=== PATIENT | male | born 1965 | race African-American/Black ===

== ENCOUNTER 2018-02-22 10:22 | Inpatient (IN) | payer MEDICAID, OTHER ==
[~2018-02-22] VITALS: Ht 167.6 cm; Wt 68.9 kg
[2018-02-22] MEDS ORDERED: SODIUM CHLORIDE 0.9% 1,000 ML IV ONE (11:44)
[2018-02-22] MEDS ORDERED: MECLIZINE 25MG TABLET PO ONE (12:00)
[2018-02-22 12:12] LABS: BASOPHILS % 0.9 % (0.0-2.0); EOSINOPHILS % 1.7 % (0.0-5.0); HEMATOCRIT. 37.6 % (42.0-52.0); HEMOGLOBIN. 13.2 g/dL (14.0-18.0); LYMPHOCYTES % 21.5 % (20.0-50.0); MEAN CORPUSCULAR HEMOGLOBIN 30.8 pg (28.0-32.0); MEAN CORPUSCULAR VOLUME 87.4 fL (80.0-94.0); MEAN PLATELET VOLUME 8.4 fl (7.4-10.4); MONOCYTES % 6.1 % (2.0-8.0); NEUTROPHILS % 69.8 % (40.0-76.0); PLATELET 199 x1000/uL (130-400); RED CELL DISTRIBUTION WIDTH 13.7 % (11.6-14.6)
[2018-02-22 12:20] LABS: CHLORIDE 100 mEq/L (98-107)
[2018-02-22 12:24] LABS: PARTIAL THROMBOPLASTIN TIME 26.6 sec (23.4-31.0); PROTHROMBIN TIME 10.3 sec (9.1-11.1)
[2018-02-22 12:28] LABS: CREATINE KINASE 37 IU/L (39-308)
[2018-02-22 12:30] LABS: CREATINE KINASE MB FRACTION < 1.0 ng/mL (0.5-3.6)
[2018-02-22] MEDS ORDERED: IPRATROPIUM/ALBUTEROL 0.5-3(2.5)MG/3ML NEB HHN PRN (15:45)
[2018-02-22] MEDS ORDERED: DEXTROSE 50% WATER 50ML SYRINGE IV PRN ×2 (15:45→16:15)
[2018-02-22 15:47] VITALS: BP 177/90
[2018-02-22] MEDS ORDERED: ACETAMINOPHEN 325MG TABLET PO PRN (16:15)
[2018-02-22] MEDS ORDERED: CLONIDINE 0.1MG TABLET PO PRN (16:15)
[2018-02-22] MEDS ORDERED: ONDANSETRON HCL 4MG/2ML INJ IV PRN (16:15)
[2018-02-22] MEDS: BLOOD SUGAR DIAGNOSTIC STRIP TEST SCH ×2 (16:20→21:13)
[2018-02-22] MEDS ORDERED: BLOOD SUGAR DIAGNOSTIC STRIP TEST SCH (16:45)
[2018-02-22 16:48] VITALS: BP_SYST 109; BP_SYST 169; BP_SYST 177; BP_DIAS 69; BP_DIAS 82; BP_DIAS 90
[2018-02-22] MEDS: INSULIN LISPRO 100 UNITS/ML SUBCUT SCH ×2 (17:31→21:14)
[2018-02-22] MEDS ORDERED: METF-815 PO (17:40)
[2018-02-22 18:33] LABS: CLARITY URINE CLEAR (CLEAR); COLOR URINE YELLOW (YELLOW); KETONES URINE TRACE (NEGATIVE); LEUKOCYTE ESTERASE URINE NEGATIVE (NEGATIVE); NITRITE URINE NEGATIVE (NEGATIVE); OCCULT BLOOD URINE NEGATIVE (NEGATIVE); PH URINE 5.5 (4.5-8.0); PROTEIN URINE 1+ (NEGATIVE); SPECIFIC GRAVITY URINE 1.019 (1.005-1.030); UROBILINOGEN URINE 0.2 E.U./dL (0.2-1.0)
[2018-02-22 19:31] LABS: *BENZODIAZEPINES SCREEN URINE NEGATIVE (NEGATIVE); *COCAINE SCREEN URINE NEGATIVE (NEGATIVE); METHADONE URINE SCREEN NEGATIVE (NEGATIVE); OPIATES URINE SCREEN NEGATIVE (NEGATIVE)
[2018-02-22 19:32] LABS: *AMPHETAMINES SCREEN URINE NEGATIVE (NEGATIVE); *BARBITURATES SCREEN URINE NEGATIVE (NEGATIVE); CANNABINOID URINE SCREEN NEGATIVE (NEGATIVE); PHENCYCLIDINE URINE SCREEN NEGATIVE (NEGATIVE)
[2018-02-22 20:00] VITALS: BP 137/67
[2018-02-22] MEDS: LISINOPRIL 5MG TABLET PO SCH (21:10)
[2018-02-22] MEDS: SODIUM CHLORIDE 0.9% INJ 3ML FLUSH IVF SCH (21:11)
[2018-02-23] VITALS: BP 99/56
[2018-02-23] MEDS: SODIUM CHLORIDE 0.9% INJ 3ML FLUSH IVF SCH ×3 (06:20→21:31)
[2018-02-23] MEDS: BLOOD SUGAR DIAGNOSTIC STRIP TEST SCH ×4 (07:08→21:00)
[2018-02-23] MEDS: INSULIN LISPRO 100 UNITS/ML SUBCUT SCH ×4 (07:13→21:30)
[2018-02-23 08:00] VITALS: BP 115/60
[2018-02-23] MEDS: LISINOPRIL 5MG TABLET PO SCH ×2 (09:18→21:26)
[2018-02-23] MEDS: LINAGLIPTIN 5MG TABLET PO SCH (10:20)
[2018-02-23] MEDS ORDERED: REGADENOSON 0.4 MG/5 ML IV ONE (11:00)
[2018-02-23 12:00] VITALS: BP_SYST 104; BP_SYST 109; BP_SYST 91; BP_DIAS 51; BP_DIAS 62; BP_DIAS 68
[2018-02-23] MEDS: SODIUM CHLORIDE 0.9% 1,000 ML IV SCH (12:34)
[2018-02-23 16:00] VITALS: BP 97/56
[2018-02-23] MEDS: METFORMIN HCL 500MG TABLET PO SCH (17:45)
[2018-02-24] MEDS: SODIUM CHLORIDE 0.9% 1,000 ML IV SCH ×2 (00:28→18:08)
[2018-02-24] MEDS: BLOOD SUGAR DIAGNOSTIC STRIP TEST SCH ×4 (06:15→21:09)
[2018-02-24] MEDS: SODIUM CHLORIDE 0.9% INJ 3ML FLUSH IVF SCH ×3 (06:17→20:52)
[2018-02-24 07:04] LABS: EOSINOPHILS % 2.3 % (0.0-5.0); HEMOGLOBIN. 12.7 g/dL (14.0-18.0); LYMPHOCYTES % 29.9 % (20.0-50.0); MEAN CORPUSCULAR HEMOGLOBIN 30.6 pg (28.0-32.0); MEAN CORPUSCULAR VOLUME 86.8 fL (80.0-94.0); MEAN PLATELET VOLUME 8.3 fl (7.4-10.4); MONOCYTES % 7.8 % (2.0-8.0); PLATELET 195 x1000/uL (130-400); RED BLOOD CELL COUNT 4.14 mill/uL (4.7-6.1)
[2018-02-24] MEDS: METFORMIN HCL 500MG TABLET PO SCH ×2 (07:38→17:47)
[2018-02-24] MEDS: INSULIN LISPRO 100 UNITS/ML SUBCUT SCH ×4 (07:40→21:05)
[2018-02-24 08:00] VITALS: BP_SYST 101; BP_SYST 119; BP_SYST 82; BP_DIAS 50; BP_DIAS 64
[2018-02-24 08:31] LABS: CHLORIDE 105 mEq/L (98-107)
[2018-02-24] MEDS: LISINOPRIL 5MG TABLET PO SCH ×2 (09:00→20:52)
[2018-02-24] MEDS ORDERED: REGADENOSON 0.4 MG/5 ML IV ONE (09:43)
[2018-02-24] MEDS ORDERED: FLUDROCORTISONE ACETATE 0.1MG TABLET PO SCH (10:30)
[2018-02-24 12:00] VITALS: BP 109/57
[2018-02-24] MEDS: LINAGLIPTIN 5MG TABLET PO SCH (12:12)
[2018-02-24 16:34] VITALS: BP_SYST 124; BP_SYST 78; BP_SYST 99; BP_DIAS 55; BP_DIAS 66; BP_DIAS 72
[2018-02-24 20:00] VITALS: BP_SYST 109; BP_SYST 113; BP_SYST 133; BP_DIAS 65; BP_DIAS 70; BP_DIAS 74
[2018-02-25] VITALS: BP_SYST 103; BP_SYST 108; BP_SYST 92; BP_DIAS 57; BP_DIAS 61; BP_DIAS 62
[2018-02-25 04:00] VITALS: BP_SYST 110; BP_SYST 116; BP_SYST 79; BP_DIAS 47; BP_DIAS 67; BP_DIAS 68
[2018-02-25] MEDS: SODIUM CHLORIDE 0.9% 1,000 ML IV SCH (05:58)
[2018-02-25] MEDS: SODIUM CHLORIDE 0.9% INJ 3ML FLUSH IVF SCH ×2 (05:59→12:46)
[2018-02-25] MEDS: BLOOD SUGAR DIAGNOSTIC STRIP TEST SCH ×2 (06:47→12:25)
[2018-02-25] MEDS: INSULIN LISPRO 100 UNITS/ML SUBCUT SCH ×2 (06:48→12:46)
[2018-02-25] MEDS: METFORMIN HCL 500MG TABLET PO SCH (07:18)
[2018-02-25 08:00] VITALS: BP_SYST 114; BP_SYST 140; BP_SYST 151; BP_DIAS 71; BP_DIAS 76; BP_DIAS 84
[2018-02-25] MEDS ORDERED: LINA5TAB PO (08:05)
[2018-02-25] MEDS: LINAGLIPTIN 5MG TABLET PO SCH (09:02)
[2018-02-25] MEDS: LISINOPRIL 5MG TABLET PO SCH (09:02)
[2018-02-25 11:01] VITALS: BP 140/72
[2018-02-25 12:00] VITALS: BP 140/72
== END 2018-02-25 13:02 | disposition home or self-care (01) | DRG 204 ==
LOC: ER 12:55 → 5WST 12:59 → EDBEDREQ 13:06 → EDBEDREQTM 13:06 → ENRESERV 13:57
PROVIDERS: ADMIT Family Medicine Adult Medicine; ATTEND Family Medicine Adult Medicine
DX: I95.1 Orthostatic hypotension (principal); E11.65 Type 2 diabetes mellitus with hyperglycemia; R07.9 Chest pain, unspecified; D64.9 Anemia, unspecified; I10 Essential (primary) hypertension; R06.00 Dyspnea, unspecified; G90.8 Other disorders of autonomic nervous system; Z79.84 Long term (current) use of oral hypoglycemic drugs; Z82.49 Family history of ischemic heart disease and other diseases of the circulatory system; Z83.3 Family history of diabetes mellitus; Z91.14 Patient's other noncompliance with medication regimen
CPT/HCPCS: 36415; 71045; 78452; 80048; 80061; 80305; 82533; 82550; 82553; 82962; 83036; 83735; 83880; 84484; 93005; 93017; 93306; 93880; 96360; 99285; A9500; J1815; J2785; J7030; J8597

== ENCOUNTER 2018-03-30 11:55 | Emergency (ER) | payer MEDICAID ==
[~2018-03-30] VITALS: Ht 167.6 cm; Wt 65.0 kg
[~2018-03-30 11:55] MED LIST: LINA5TAB PO; METF-815 PO
[2018-03-30] MEDS ORDERED: SODIUM CHLORIDE 0.9% 1,000 ML IV ONE (15:48)
[2018-03-30 17:20] LABS: BASOPHILS % 0.8 % (0.0-2.0); EOSINOPHILS % 2.2 % (0.0-5.0); HEMATOCRIT. 35.8 % (42.0-52.0); HEMOGLOBIN. 12.6 g/dL (14.0-18.0); LYMPHOCYTES % 22.3 % (20.0-50.0); MEAN CORPUSCULAR HEMOGLOBIN 30.2 pg (28.0-32.0); MEAN CORPUSCULAR VOLUME 86.2 fL (80.0-94.0); MEAN PLATELET VOLUME 8.3 fl (7.4-10.4); MONOCYTES % 6.4 % (2.0-8.0); NEUTROPHILS % 68.3 % (40.0-76.0); PLATELET 216 x1000/uL (130-400); RED BLOOD CELL COUNT 4.16 mill/uL (4.7-6.1); RED CELL DISTRIBUTION WIDTH 14.3 % (11.6-14.6)
[2018-03-30 17:24] LABS: CHLORIDE 104 mEq/L (98-107)
[2018-03-30 17:26] LABS: INR 1.1; PROTHROMBIN TIME 10.6 sec (9.1-11.1)
[2018-03-30 17:34] LABS: ETHANOL BLOOD < 10 mg/dL
[2018-03-30 18:03] LABS: CLARITY URINE CLEAR (CLEAR); COLOR URINE YELLOW (YELLOW); KETONES URINE NEGATIVE (NEGATIVE); LEUKOCYTE ESTERASE URINE NEGATIVE (NEGATIVE); NITRITE URINE NEGATIVE (NEGATIVE); OCCULT BLOOD URINE NEGATIVE (NEGATIVE); PROTEIN URINE 1+ (NEGATIVE); SPECIFIC GRAVITY URINE 1.014 (1.005-1.030); UROBILINOGEN URINE 0.2 E.U./dL (0.2-1.0)
[2018-03-30 18:19] LABS: *AMPHETAMINES SCREEN URINE NEGATIVE (NEGATIVE); *BARBITURATES SCREEN URINE NEGATIVE (NEGATIVE); *BENZODIAZEPINES SCREEN URINE NEGATIVE (NEGATIVE); *COCAINE SCREEN URINE NEGATIVE (NEGATIVE); CANNABINOID URINE SCREEN NEGATIVE (NEGATIVE); METHADONE URINE SCREEN NEGATIVE (NEGATIVE); OPIATES URINE SCREEN NEGATIVE (NEGATIVE); PHENCYCLIDINE URINE SCREEN NEGATIVE (NEGATIVE)
[2018-03-30 18:27] VITALS: BP 165/96
== END 2018-03-30 18:37 | disposition home or self-care (01) ==
LOC: ER 12:46 → CANBEDREQ 03-31 00:22
DX: E86.0 Dehydration (principal); I10 Essential (primary) hypertension; E11.9 Type 2 diabetes mellitus without complications; Z79.84 Long term (current) use of oral hypoglycemic drugs; Z79.899 Other long term (current) drug therapy
CPT/HCPCS: 36415; 70450; 71045; 80053; 80305; 81003; 82962; 84484; 85025; 85610; 93005; 96360; 99285; G0482; J7030

== ENCOUNTER 2018-08-16 13:53 | Emergency (ER) | payer MEDICAID ==
[~2018-08-16] VITALS: Ht 167.6 cm; Wt 65.0 kg
[2018-08-16 14:24] VITALS: BP 113/61
== END 2018-08-16 18:46 | disposition home or self-care (01) ==
LOC: ER 13:53
DX: H43.391 Other vitreous opacities, right eye (principal); E11.9 Type 2 diabetes mellitus without complications; Z79.899 Other long term (current) drug therapy
CPT/HCPCS: 82962; 99282

== ENCOUNTER 2019-05-29 17:27 | Emergency (ER) | payer SELFPAY ==
[~2019-05-29] VITALS: Ht 167.6 cm; Wt 68.0 kg
[2019-05-29 23:15] VITALS: BP 160/74
== END 2019-05-29 23:16 | disposition home or self-care (01) ==
LOC: ER 17:27
DX: H54.61 Unqualified visual loss, right eye, normal vision left eye (principal); E11.319 Type 2 diabetes mellitus with unspecified diabetic retinopathy without macular edema; R03.0 Elevated blood-pressure reading, without diagnosis of hypertension
CPT/HCPCS: 82962; 99284

== ENCOUNTER 2020-09-27 13:56 | Emergency (ER) | payer MEDICAID ==
[~2020-09-27] VITALS: Ht 167.6 cm; Wt 67.0 kg
[~2020-09-27 13:56] MED LIST changes: -METF-815 PO; +METF-873 PO
[2020-09-27] MEDS ORDERED: KETOROLAC 60MG/2ML VIAL IM ONE (14:45)
[2020-09-27] MEDS ORDERED: IBUP-2029 MT (15:15)
[2020-09-27 15:19] VITALS: BP 107/55
== END 2020-09-27 15:51 | disposition home or self-care (01) ==
LOC: ER 13:56
DX: M54.2 Cervicalgia (principal); I10 Essential (primary) hypertension; E11.9 Type 2 diabetes mellitus without complications
CPT/HCPCS: 96372; 99283; J1885

== ENCOUNTER 2022-04-01 11:27 | Inpatient (IN) | payer MEDICARE, MEDICAID ==
[~2022-04-01] VITALS: Ht 172.7 cm; Wt 99.8 kg
[~2022-04-01 11:27] MED LIST changes: +IBUP-2029 MT
[2022-04-01 12:39] LABS: HEMATOCRIT. 25.4 % (42.0-52.0); HEMOGLOBIN. 8.5 g/dL (14.0-18.0); MEAN CORPUSCULAR HEMOGLOBIN 28.8 pg (28.0-32.0); MEAN CORPUSCULAR VOLUME 86.1 fL (80.0-94.0); MEAN PLATELET VOLUME 7.2 fl (7.4-10.4); PLATELET 303 x1000/uL (130-400); RED BLOOD CELL COUNT 2.94 mill/uL (4.7-6.1); RED CELL DISTRIBUTION WIDTH 14.5 % (11.6-14.6)
[2022-04-01 12:50] LABS: PARTIAL THROMBOPLASTIN TIME 32.5 sec (23.4-31.0); PROTHROMBIN TIME 10.7 sec (9.6-11.0)
[2022-04-01 13:00] LABS: CHLORIDE 104 mEq/L (98-107)
[2022-04-01 13:12] LABS: ETHANOL BLOOD < 10 mg/dL
[2022-04-01 13:45] LABS: PLATELET ESTIMATE NORMAL
[2022-04-01] MEDS ORDERED: ASPIRIN 325MG EC TABLET PO NR (16:00)
[2022-04-01] MEDS ORDERED: FUROSEMIDE 40MG/4ML VIAL IV NR (16:00)
[2022-04-01] MEDS ORDERED: NITROGLYCERIN OINT 1GM/INCH UDPKT TD NR (16:00)
[2022-04-01] MEDS ORDERED: IPRATROPIUM/ALBUTEROL 0.5-3(2.5)MG/3ML NEB NEB PRN (17:30)
[2022-04-01] MEDS ORDERED: ACETAMINOPHEN 325MG TABLET PO PRN (17:30)
[2022-04-01] MEDS ORDERED: GUAIFENESIN 200MG/10ML SUGAR FREE UDC PO PRN (17:30)
[2022-04-01] MEDS ORDERED: DIPHENHYDRAMINE 50MG/ML VIAL IV PRN (17:30)
[2022-04-01] MEDS ORDERED: ONDANSETRON HCL 4MG/2ML INJ IV PRN (17:30)
[2022-04-01] MEDS ORDERED: MAGNESIUM/ALUMINUM HYDROXIDE/SIMETHICONE 30ML UDC PO PRN (17:30)
[2022-04-01] MEDS ORDERED: DEXTROSE 50% WATER 50ML SYRINGE IV PRN (19:00)
[2022-04-01] MEDS ORDERED: METFORMIN HCL 500 MG PO SCH (19:00)
[2022-04-01] MEDS: PANTOPRAZOLE SODIUM 40 MG/VIAL IV SCH (19:11)
[2022-04-01 19:29] LABS: PHOSPHORUS 4.7 mg/dL (2.5-4.9)
[2022-04-01] MEDS: AMLODIPINE 5MG TABLET PO SCH (20:38)
[2022-04-01] MEDS: BENAZEPRIL 5MG TABLET PO SCH (20:39)
[2022-04-01] MEDS: ENOXAPARIN 30MG/0.3ML SYR SUBCUT SCH (20:39)
[2022-04-01] MEDS: INSULIN LISPRO 100 UNITS/ML SUBCUT SCH (21:00)
[2022-04-01] MEDS: BLOOD SUGAR DIAGNOSTIC STRIP TEST SCH (21:00)
[2022-04-01] MEDS: HYDRALAZINE HCL 25MG TABLET PO SCH (22:14)
[2022-04-01] MEDS ORDERED: *PATIENT'S OWN MEDICATION STORAGE XX SCH (22:45)
[2022-04-02] VITALS (7 sets, daily range): BP systolic 107–161; BP diastolic 68–79
[2022-04-02] MEDS ORDERED: BENA-8 PO (01:48)
[2022-04-02] MEDS ORDERED: AMLO5TAB88 PO (01:48)
[2022-04-02] MEDS ORDERED: XALAO EACHEYE (01:48)
[2022-04-02] MEDS ORDERED: FURO20TA4 PO (01:48)
[2022-04-02] MEDS ORDERED: BRIM15DR8 EACHEYE (01:48)
[2022-04-02] MEDS ORDERED: HYDR-4134 PO (01:48)
[2022-04-02] MEDS ORDERED: HYDR-4135 PO (01:48)
[2022-04-02] MEDS: HYDRALAZINE HCL 25MG TABLET PO SCH ×3 (05:02→21:26)
[2022-04-02] MEDS: INSULIN LISPRO 100 UNITS/ML SUBCUT SCH ×4 (05:02→21:30)
[2022-04-02] MEDS: BLOOD SUGAR DIAGNOSTIC STRIP TEST SCH ×4 (05:02→21:20)
[2022-04-02 07:23] LABS: T4 FREE 1.07 ng/dL (0.76-1.46)
[2022-04-02 07:25] LABS: CREATINE KINASE MB FRACTION 3.3 ng/mL (0.5-3.6)
[2022-04-02] MEDS: AMLODIPINE 5MG TABLET PO SCH (08:59)
[2022-04-02] MEDS ORDERED: LINAGLIPTIN 5MG TABLET PO SCH (09:00)
[2022-04-02] MEDS: PANTOPRAZOLE SODIUM 40 MG/VIAL IV SCH (09:00)
[2022-04-02] MEDS ORDERED: FUROSEMIDE 40MG/4ML VIAL IVP SCH (09:00)
[2022-04-02] MEDS: BENAZEPRIL 5MG TABLET PO SCH (09:27)
[2022-04-02] MEDS: CLONIDINE 0.1MG TABLET PO PRN (12:26)
[2022-04-02 17:31] LABS: HEMATOCRIT 21.5 % (42.0-52.0); HEMOGLOBIN 7.2 g/dL (14.0-18.0); MEAN CORPUSCULAR VOLUME 86.5 fL (80.0-94.0); PLATELET 269 x1000/uL (130-400); RED BLOOD CELL COUNT 2.48 mill/uL (4.7-6.1); RED CELL DISTRIBUTION WIDTH 14.6 % (11.6-14.6)
[2022-04-02 17:47] LABS: CHLORIDE 107 mEq/L (98-107)
[2022-04-02] MEDS: ENOXAPARIN 30MG/0.3ML SYR SUBCUT SCH (21:26)
[2022-04-03] VITALS: BP 139/77
[2022-04-03 04:00] VITALS: BP_SYST 134; BP_SYST 169; BP_DIAS 72
[2022-04-03] MEDS: BLOOD SUGAR DIAGNOSTIC STRIP TEST SCH ×4 (05:02→21:01)
[2022-04-03] MEDS: INSULIN LISPRO 100 UNITS/ML SUBCUT SCH ×4 (05:02→21:48)
[2022-04-03] MEDS: CLONIDINE 0.1MG TABLET PO PRN (05:33)
[2022-04-03] MEDS: HYDRALAZINE HCL 25MG TABLET PO SCH ×3 (05:33→21:45)
[2022-04-03 07:57] VITALS: BP 151/60
[2022-04-03] MEDS: FERROUS SULFATE 325MG TABLET PO SCH ×2 (08:52→17:59)
[2022-04-03] MEDS: AMLODIPINE 5MG TABLET PO SCH (08:52)
[2022-04-03] MEDS: CALCIUM ACETATE 667MG CAPSULE PO SCH ×3 (08:52→17:59)
[2022-04-03] MEDS: FUROSEMIDE 40MG/4ML VIAL IVP SCH (08:53)
[2022-04-03] MEDS: BENAZEPRIL 10MG TABLET PO SCH ×2 (08:53→21:46)
[2022-04-03] MEDS ORDERED: EPOETIN ALFA-EPBX 4,000 UNIT/ML VIAL SUBCUT SCH ×2 (09:00→21:00)
[2022-04-03] MEDS: PANTOPRAZOLE SODIUM 40 MG/VIAL IV SCH (09:45)
[2022-04-03 10:33] LABS: HEMOGLOBIN 7.1 g/dL (14.0-18.0); MEAN CORPUSCULAR HEMOGLOBIN 29.4 pg (28.0-32.0); MEAN CORPUSCULAR VOLUME 86.5 fL (80.0-94.0); PLATELET 335 x1000/uL (130-400); RED BLOOD CELL COUNT 2.41 mill/uL (4.7-6.1); RED CELL DISTRIBUTION WIDTH 14.4 % (11.6-14.6)
[2022-04-03 10:40] LABS: CHLORIDE 109 mEq/L (98-107)
[2022-04-03 10:41] LABS: HEMATOCRIT 20.9 % (42.0-52.0)
[2022-04-03 10:47] LABS: PHOSPHORUS 4.7 mg/dL (2.5-4.9)
[2022-04-03 10:56] LABS: CLARITY URINE CLEAR (CLEAR); COLOR URINE YELLOW (YELLOW); KETONES URINE TRACE (NEGATIVE); LEUKOCYTE ESTERASE URINE NEGATIVE (NEGATIVE); NITRITE URINE NEGATIVE (NEGATIVE); OCCULT BLOOD URINE NEGATIVE (NEGATIVE); PH URINE 5.5 (4.5-8.0); PROTEIN URINE 3+ (NEGATIVE); SPECIFIC GRAVITY URINE 1.014 (1.005-1.030); UROBILINOGEN URINE 0.2 E.U./dL (0.2-1.0)
[2022-04-03] MEDS ORDERED: SODIUM POLYSTYRENE SULFONATE 15 G/60 ML BOT PO NR (11:15)
[2022-04-03 12:00] VITALS: BP 158/64
[2022-04-03 16:00] VITALS: BP 98/58
[2022-04-03 20:00] VITALS: BP 172/74
[2022-04-03] MEDS: ENOXAPARIN 30MG/0.3ML SYR SUBCUT SCH (21:44)
[2022-04-04] VITALS: BP 168/66
[2022-04-04 04:00] VITALS: BP 155/66
[2022-04-04] MEDS: HYDRALAZINE HCL 25MG TABLET PO SCH ×3 (06:29→21:12)
[2022-04-04] MEDS: BLOOD SUGAR DIAGNOSTIC STRIP TEST SCH ×4 (06:57→21:00)
[2022-04-04] MEDS: INSULIN LISPRO 100 UNITS/ML SUBCUT SCH ×4 (06:58→21:13)
[2022-04-04 08:00] VITALS: BP 178/80
[2022-04-04] MEDS: CALCIUM ACETATE 667MG CAPSULE PO SCH ×3 (08:49→17:31)
[2022-04-04] MEDS: AMLODIPINE 10MG TABLET PO SCH (08:49)
[2022-04-04] MEDS: PANTOPRAZOLE SODIUM 40 MG/VIAL IV SCH (08:50)
[2022-04-04] MEDS: FERROUS SULFATE 325MG TABLET PO SCH ×2 (08:50→17:31)
[2022-04-04] MEDS: BENAZEPRIL 10MG TABLET PO SCH ×2 (08:50→21:12)
[2022-04-04] MEDS: FUROSEMIDE 40MG/4ML VIAL IVP SCH (08:51)
[2022-04-04 12:00] VITALS: BP 165/66
[2022-04-04 12:38] LABS: HEMATOCRIT. 22.5 % (42.0-52.0); HEMOGLOBIN. 7.8 g/dL (14.0-18.0); MEAN CORPUSCULAR HEMOGLOBIN 29.5 pg (28.0-32.0); MEAN CORPUSCULAR VOLUME 85.2 fL (80.0-94.0); MEAN PLATELET VOLUME 7.3 fl (7.4-10.4); PLATELET 300 x1000/uL (130-400); RED BLOOD CELL COUNT 2.64 mill/uL (4.7-6.1); RED CELL DISTRIBUTION WIDTH 14.3 % (11.6-14.6)
[2022-04-04 13:06] LABS: CHLORIDE 108 mEq/L (98-107)
[2022-04-04 13:15] LABS: PHOSPHORUS 4.6 mg/dL (2.5-4.9)
[2022-04-04 16:00] VITALS: BP 147/58
[2022-04-04 20:00] VITALS: BP 163/63
[2022-04-04] MEDS: ENOXAPARIN 30MG/0.3ML SYR SUBCUT SCH (21:12)
[2022-04-04] MEDS ORDERED: FUROSEMIDE 40MG/4ML VIAL IVP NR (21:15)
[2022-04-05] VITALS: BP 159/59
[2022-04-05 04:00] VITALS: BP 160/55
[2022-04-05] MEDS: HYDRALAZINE HCL 25MG TABLET PO SCH ×2 (05:56→14:36)
[2022-04-05] MEDS: INSULIN LISPRO 100 UNITS/ML SUBCUT SCH ×2 (05:57→12:18)
[2022-04-05 06:38] LABS: HEMATOCRIT 24.3 % (42.0-52.0); HEMOGLOBIN 8.2 g/dL (14.0-18.0); MEAN CORPUSCULAR HEMOGLOBIN 28.7 pg (28.0-32.0); MEAN CORPUSCULAR VOLUME 84.9 fL (80.0-94.0); PLATELET 324 x1000/uL (130-400); RED BLOOD CELL COUNT 2.86 mill/uL (4.7-6.1); RED CELL DISTRIBUTION WIDTH 14.5 % (11.6-14.6)
[2022-04-05] MEDS: BLOOD SUGAR DIAGNOSTIC STRIP TEST SCH ×2 (06:53→12:18)
[2022-04-05 06:56] LABS: PHOSPHORUS 4.4 mg/dL (2.5-4.9)
[2022-04-05 08:00] VITALS: BP 164/65
[2022-04-05] MEDS: CALCIUM ACETATE 667MG CAPSULE PO SCH ×3 (08:43→17:51)
[2022-04-05] MEDS: FERROUS SULFATE 325MG TABLET PO SCH ×2 (08:43→17:51)
[2022-04-05] MEDS: AMLODIPINE 10MG TABLET PO SCH (08:43)
[2022-04-05] MEDS: FUROSEMIDE 40MG/4ML VIAL IVP SCH (08:44)
[2022-04-05] MEDS: PANTOPRAZOLE SODIUM 40 MG/VIAL IV SCH (08:44)
[2022-04-05] MEDS ORDERED: BENAZEPRIL 10MG TABLET PO SCH (09:00)
[2022-04-05 12:00] VITALS: BP 172/70
[2022-04-05] MEDS ORDERED: FURO80TA3 MT (15:46)
[2022-04-05 16:00] VITALS: BP 171/72
[2022-04-05] MEDS: CLONIDINE 0.1MG TABLET PO PRN (16:17)
[2022-04-05 16:48] LABS: PLATELET ESTIMATE NORMAL
[2022-04-05 17:52] VITALS: BP 156/69
[2022-04-05] MEDS ORDERED: HYDRALAZINE HCL 50MG TABLET PO SCH (22:00)
== END 2022-04-05 18:15 | disposition home or self-care (01) | DRG 291 ==
LOC: ER 11:27 → 8WST 16:33
PROVIDERS: ADMIT Internal Medicine; ATTEND Internal Medicine
DX: I13.0 Hypertensive heart and chronic kidney disease with heart failure and stage 1 through stage 4 chronic kidney disease, or unspecified chronic kidney disease (principal); E43 Unspecified severe protein-calorie malnutrition; I50.33 Acute on chronic diastolic (congestive) heart failure; N17.9 Acute kidney failure, unspecified; N18.4 Chronic kidney disease, stage 4 (severe); E11.9 Type 2 diabetes mellitus without complications; E78.5 Hyperlipidemia, unspecified; E83.51 Hypocalcemia; D63.1 Anemia in chronic kidney disease; E11.22 Type 2 diabetes mellitus with diabetic chronic kidney disease; E11.319 Type 2 diabetes mellitus with unspecified diabetic retinopathy without macular edema; E83.39 Other disorders of phosphorus metabolism; K59.00 Constipation, unspecified; E83.41 Hypermagnesemia; E88.09 Other disorders of plasma-protein metabolism, not elsewhere classified; E87.5 Hyperkalemia; Z68.33 Body mass index [BMI] 33.0-33.9, adult; Z79.4 Long term (current) use of insulin; Z87.19 Personal history of other diseases of the digestive system
CPT/HCPCS: 36415; 71045; 74176; 76700; 76857; 80048; 80053; 80061; 80320; 81003; 82040; 82550; 82553; 82962; 83036; 83540; 83550; 83735; 83880; 84100; 84153; 84439; 84443; 84481; 84484; 85025; 85027; 85379; 93005; 93306; 93970; 99291; C9113; J0885; J1650; J1815; J1940; G0103; G0480

== ENCOUNTER 2022-04-15 21:38 | Inpatient (IN) | payer MEDICARE, MEDICAID ==
[~2022-04-15] VITALS: Ht 170.2 cm; Wt 78.9 kg
[~2022-04-15 21:38] MED LIST changes: +AMLO5TAB88 PO; +BENA-8 PO; +BRIM15DR8 EACHEYE; +FURO80TA3 MT; +HYDR-4135 PO; -IBUP-2029 MT; -LINA5TAB PO; -METF-873 PO; +XALAO EACHEYE
[2022-04-16] MEDS ORDERED: FUROSEMIDE 40MG/4ML VIAL IVP NR (03:15)
[2022-04-16 04:22] LABS: BASOPHILS % 1.1 % (0.0-2.0); EOSINOPHILS % 4.8 % (0.0-5.0); HEMATOCRIT. 24.7 % (42.0-52.0); HEMOGLOBIN. 8.4 g/dL (14.0-18.0); LYMPHOCYTES % 8.9 % (20.0-50.0); MEAN CORPUSCULAR HEMOGLOBIN 29.1 pg (28.0-32.0); MEAN CORPUSCULAR VOLUME 85.9 fL (80.0-94.0); MEAN PLATELET VOLUME 7.9 fl (7.4-10.4); MONOCYTES % 6.3 % (2.0-8.0); NEUTROPHILS % 78.9 % (40.0-76.0); PLATELET 198 x1000/uL (130-400); RED BLOOD CELL COUNT 2.88 mill/uL (4.7-6.1); RED CELL DISTRIBUTION WIDTH 15.3 % (11.6-14.6)
[2022-04-16 04:26] LABS: CHLORIDE 110 mEq/L (98-107); CLARITY URINE CLEAR (CLEAR); COLOR URINE YELLOW (YELLOW); KETONES URINE NEGATIVE (NEGATIVE); LEUKOCYTE ESTERASE URINE NEGATIVE (NEGATIVE); NITRITE URINE NEGATIVE (NEGATIVE); OCCULT BLOOD URINE NEGATIVE (NEGATIVE); PROTEIN URINE 3+ (NEGATIVE); SPECIFIC GRAVITY URINE 1.015 (1.005-1.030); UROBILINOGEN URINE 0.2 E.U./dL (0.2-1.0)
[2022-04-16 04:35] LABS: ETHANOL BLOOD < 10 mg/dL
[2022-04-16 04:41] LABS: *AMPHETAMINES SCREEN URINE NEGATIVE (NEGATIVE); *BARBITURATES SCREEN URINE NEGATIVE (NEGATIVE); *BENZODIAZEPINES SCREEN URINE NEGATIVE (NEGATIVE); *COCAINE SCREEN URINE NEGATIVE (NEGATIVE); CANNABINOID URINE SCREEN NEGATIVE (NEGATIVE); METHADONE URINE SCREEN NEGATIVE (NEGATIVE); OPIATES URINE SCREEN NEGATIVE (NEGATIVE); PHENCYCLIDINE URINE SCREEN NEGATIVE (NEGATIVE)
[2022-04-16] MEDS ORDERED: ENALAPRIL 2.5MG/2ML VIAL 2ML IV ONE (06:45)
[2022-04-16] MEDS ORDERED: ENALAPRIL 1.25MG/ML VIAL 1ML IV NR (08:15)
[2022-04-16] MEDS ORDERED: GUAIFENESIN 200MG/10ML SUGAR FREE UDC PO PRN (12:45)
[2022-04-16] MEDS ORDERED: ACETAMINOPHEN 325MG TABLET PO PRN (12:45)
[2022-04-16] MEDS ORDERED: ONDANSETRON HCL 4MG/2ML INJ IV PRN (12:45)
[2022-04-16] MEDS ORDERED: SODIUM POLYSTYRENE SULFONATE 15 G/60 ML BOT PO NR (13:23)
[2022-04-16] MEDS: ENOXAPARIN 30MG/0.3ML SYR SUBCUT SCH (13:30)
[2022-04-16] MEDS ORDERED: LEVOFLOXACIN 500MG PREMIX 100 ML IV SCH (14:30)
[2022-04-16] MEDS ORDERED: DEXTROSE 50% WATER 50ML SYRINGE IV PRN (14:45)
[2022-04-16] MEDS ORDERED: LEVOFLOXACIN 500MG PREMIX 100 ML IV NR (15:00)
[2022-04-16 16:00] VITALS: BP 157/68
[2022-04-16] MEDS: CLONIDINE 0.2MG TABLET PO SCH (16:48)
[2022-04-16] MEDS: FUROSEMIDE 40MG/4ML VIAL IVP SCH (16:48)
[2022-04-16] MEDS: BLOOD SUGAR DIAGNOSTIC STRIP TEST SCH ×2 (17:40→20:55)
[2022-04-16] MEDS: INSULIN LISPRO 100 UNITS/ML SUBCUT SCH ×2 (18:51→21:18)
[2022-04-16 20:00] VITALS: BP 181/82
[2022-04-16] MEDS ORDERED: ZOLPIDEM TARTRATE 5MG TABLET PO PRN (21:00)
[2022-04-16] MEDS: HYDRALAZINE HCL 100MG TABLET PO SCH (21:17)
[2022-04-17] VITALS: BP 155/66
[2022-04-17 04:00] VITALS: BP 171/77
[2022-04-17] MEDS: FUROSEMIDE 40MG/4ML VIAL IVP SCH ×2 (05:59→18:32)
[2022-04-17 07:14] LABS: BASOPHILS % 0.7 % (0.0-2.0); EOSINOPHILS % 1.5 % (0.0-5.0); HEMATOCRIT. 23.4 % (42.0-52.0); HEMOGLOBIN. 7.9 g/dL (14.0-18.0); LYMPHOCYTES % 8.9 % (20.0-50.0); MEAN CORPUSCULAR HEMOGLOBIN 28.9 pg (28.0-32.0); MEAN CORPUSCULAR VOLUME 85.8 fL (80.0-94.0); MEAN PLATELET VOLUME 8.3 fl (7.4-10.4); MONOCYTES % 5.2 % (2.0-8.0); NEUTROPHILS % 83.7 % (40.0-76.0); PLATELET 190 x1000/uL (130-400); RED BLOOD CELL COUNT 2.73 mill/uL (4.7-6.1); RED CELL DISTRIBUTION WIDTH 15.2 % (11.6-14.6)
[2022-04-17 08:00] VITALS: BP 181/77
[2022-04-17] MEDS: INSULIN LISPRO 100 UNITS/ML SUBCUT SCH ×4 (08:10→21:00)
[2022-04-17] MEDS: BLOOD SUGAR DIAGNOSTIC STRIP TEST SCH ×4 (08:35→21:00)
[2022-04-17] MEDS ORDERED: EPOETIN ALFA 2,000 UNIT/ML VIAL SUBCUT SCH ×2 (09:00→21:00)
[2022-04-17] MEDS: HYDRALAZINE HCL 50MG TABLET PO SCH (10:57)
[2022-04-17] MEDS: CLONIDINE 0.2MG TABLET PO SCH ×2 (10:58→18:33)
[2022-04-17] MEDS: LEVOFLOXACIN 250MG PREMIX 50 ML IV SCH (10:58)
[2022-04-17] MEDS: ENOXAPARIN 30MG/0.3ML SYR SUBCUT SCH (10:58)
[2022-04-17] MEDS: FERROUS SULFATE 325MG TABLET PO SCH ×2 (10:59→18:32)
[2022-04-17 12:00] VITALS: BP 180/76
[2022-04-17] MEDS ORDERED: LEVOFLOXACIN 250MG PREMIX 50 ML IV SCH (15:00)
[2022-04-17] MEDS: SILVER SULFADIAZINE 1% CREAM 50GM TOP SCH (15:58)
[2022-04-17 16:00] VITALS: BP 174/76
[2022-04-17 16:37] LABS: CHLORIDE 109 mEq/L (98-107)
[2022-04-17 16:44] LABS: PHOSPHORUS 4.8 mg/dL (2.5-4.9)
[2022-04-17 20:00] VITALS: BP 160/78
[2022-04-17] MEDS: HYDRALAZINE HCL 100MG TABLET PO SCH (22:35)
[2022-04-18] VITALS (7 sets, daily range): BP systolic 150–207; BP diastolic 67–87
[2022-04-18] MEDS: FUROSEMIDE 40MG/4ML VIAL IVP SCH ×2 (06:28→16:53)
[2022-04-18 06:36] LABS: BASOPHILS % 0.9 % (0.0-2.0); HEMATOCRIT. 23.9 % (42.0-52.0); HEMOGLOBIN. 8.2 g/dL (14.0-18.0); LYMPHOCYTES % 11.9 % (20.0-50.0); MEAN PLATELET VOLUME 8.3 fl (7.4-10.4); MONOCYTES % 5.8 % (2.0-8.0); NEUTROPHILS % 77.4 % (40.0-76.0); PLATELET 194 x1000/uL (130-400); RED BLOOD CELL COUNT 2.81 mill/uL (4.7-6.1); RED CELL DISTRIBUTION WIDTH 15.3 % (11.6-14.6)
[2022-04-18 06:52] LABS: CHLORIDE 110 mEq/L (98-107)
[2022-04-18 07:02] LABS: PHOSPHORUS 4.8 mg/dL (2.5-4.9)
[2022-04-18] MEDS: BLOOD SUGAR DIAGNOSTIC STRIP TEST SCH ×4 (07:40→21:36)
[2022-04-18] MEDS: ENOXAPARIN 30MG/0.3ML SYR SUBCUT SCH (09:14)
[2022-04-18] MEDS: CLONIDINE 0.2MG TABLET PO SCH ×2 (09:15→16:55)
[2022-04-18] MEDS: HYDRALAZINE HCL 50MG TABLET PO SCH (09:16)
[2022-04-18] MEDS: FERROUS SULFATE 325MG TABLET PO SCH ×2 (09:16→16:54)
[2022-04-18] MEDS: LISINOPRIL 20MG TABLET PO SCH ×2 (09:17→21:28)
[2022-04-18] MEDS: SILVER SULFADIAZINE 1% CREAM 50GM TOP SCH (09:18)
[2022-04-18] MEDS: INSULIN LISPRO 100 UNITS/ML SUBCUT SCH ×4 (09:20→21:36)
[2022-04-18] MEDS: LEVOFLOXACIN 250MG PREMIX 50 ML IV SCH (11:00)
[2022-04-18] MEDS ORDERED: ACETAMINOPHEN 500MG TABLET PO PRN (17:45)
[2022-04-18] MEDS: HYDRALAZINE HCL 100MG TABLET PO SCH (21:30)
[2022-04-18] MEDS ORDERED: SODIUM POLYSTYRENE SULFONATE 15 G/60 ML BOT PO NR (23:45)
[2022-04-19] VITALS (7 sets, daily range): BP systolic 138–190; BP diastolic 67–87
[2022-04-19] MEDS: FUROSEMIDE 40MG/4ML VIAL IVP SCH ×2 (05:19→17:54)
[2022-04-19] MEDS: CLONIDINE 0.2MG TABLET PO PRN ×3 (05:20→20:06)
[2022-04-19 07:23] LABS: BASOPHILS % 1.2 % (0.0-2.0); EOSINOPHILS % 5.6 % (0.0-5.0); HEMATOCRIT. 24.8 % (42.0-52.0); HEMOGLOBIN. 8.4 g/dL (14.0-18.0); LYMPHOCYTES % 11.3 % (20.0-50.0); MEAN CORPUSCULAR VOLUME 85.3 fL (80.0-94.0); MEAN PLATELET VOLUME 8.4 fl (7.4-10.4); MONOCYTES % 6.3 % (2.0-8.0); NEUTROPHILS % 75.6 % (40.0-76.0); PLATELET 201 x1000/uL (130-400); RED BLOOD CELL COUNT 2.91 mill/uL (4.7-6.1); RED CELL DISTRIBUTION WIDTH 15.5 % (11.6-14.6)
[2022-04-19] MEDS: BLOOD SUGAR DIAGNOSTIC STRIP TEST SCH ×4 (07:40→20:06)
[2022-04-19 07:58] LABS: CHLORIDE 105 mEq/L (98-107)
[2022-04-19 08:12] LABS: PHOSPHORUS 4.7 mg/dL (2.5-4.9)
[2022-04-19] MEDS: ENOXAPARIN 30MG/0.3ML SYR SUBCUT SCH (08:44)
[2022-04-19] MEDS: FERROUS SULFATE 325MG TABLET PO SCH ×2 (08:44→17:53)
[2022-04-19] MEDS: LISINOPRIL 20MG TABLET PO SCH ×2 (08:45→20:06)
[2022-04-19] MEDS: HYDRALAZINE HCL 50MG TABLET PO SCH (08:45)
[2022-04-19] MEDS: INSULIN LISPRO 100 UNITS/ML SUBCUT SCH ×4 (08:46→20:06)
[2022-04-19] MEDS: SILVER SULFADIAZINE 1% CREAM 50GM TOP SCH (08:48)
[2022-04-19] MEDS: CLONIDINE 0.2MG TABLET PO SCH ×2 (08:48→17:53)
[2022-04-19] MEDS: LEVOFLOXACIN 250MG PREMIX 50 ML IV SCH (12:16)
[2022-04-19] MEDS ORDERED: HYDRALAZINE HCL 100MG TABLET PO SCH ×2 (14:00→17:00)
[2022-04-19] MEDS ORDERED: LISI20TA31 PO (16:01)
[2022-04-19] MEDS ORDERED: LEVO250T74 PO (16:01)
[2022-04-19] MEDS ORDERED: HYDR100T26 PO (16:01)
[2022-04-19] MEDS ORDERED: FURO80TA3 PO (16:01)
== END 2022-04-19 21:00 | disposition home or self-care (01) | DRG 291 ==
LOC: ER 21:38 → 7WST 04-16 06:45 → EDBEDREQTM 04-16 07:40 → ENRESERV 04-16 10:49 → EDBEDREQ 04-16 11:34
PROVIDERS: ADMIT Internal Medicine; ATTEND Internal Medicine
DX: I13.0 Hypertensive heart and chronic kidney disease with heart failure and stage 1 through stage 4 chronic kidney disease, or unspecified chronic kidney disease (principal); I50.33 Acute on chronic diastolic (congestive) heart failure; N17.9 Acute kidney failure, unspecified; N18.4 Chronic kidney disease, stage 4 (severe); E46 Unspecified protein-calorie malnutrition; N45.3 Epididymo-orchitis; L97.509 Non-pressure chronic ulcer of other part of unspecified foot with unspecified severity; I87.2 Venous insufficiency (chronic) (peripheral); E11.621 Type 2 diabetes mellitus with foot ulcer; I89.0 Lymphedema, not elsewhere classified; N40.0 Benign prostatic hyperplasia without lower urinary tract symptoms; D63.1 Anemia in chronic kidney disease; E11.22 Type 2 diabetes mellitus with diabetic chronic kidney disease; E87.5 Hyperkalemia; R74.01 Elevation of levels of liver transaminase levels; E11.319 Type 2 diabetes mellitus with unspecified diabetic retinopathy without macular edema; E11.21 Type 2 diabetes mellitus with diabetic nephropathy; N43.3 Hydrocele, unspecified; Z79.899 Other long term (current) drug therapy; Z79.4 Long term (current) use of insulin; Z68.27 Body mass index [BMI] 27.0-27.9, adult; Z91.199 Patient's noncompliance with other medical treatment and regimen due to unspecified reason
CPT/HCPCS: 36415; 71045; 76700; 76870; 80048; 80053; 80305; 80320; 81003; 82962; 83036; 83735; 83880; 84100; 84484; 85025; 93005; 93976; 99285; J1650; J1815; J1940; J1956; J3490; G0480

== ENCOUNTER 2022-09-09 12:38 | Inpatient (IN) | payer MEDICARE, MEDICAID ==
[~2022-09-09] VITALS: Ht 167.6 cm; Wt 67.1 kg
[~2022-09-09 12:38] MED LIST changes: -BENA-8 PO; -FURO80TA3 MT; +FURO80TA3 PO; -HYDR-4135 PO; +HYDR100T26 PO; +LEVO250T74 PO; +LISI20TA31 PO
[2022-09-09] MEDS ORDERED: IPRATROPIUM/ALBUTEROL 0.5-3(2.5)MG/3ML NEB HHN ONE (13:15)
[2022-09-09] MEDS ORDERED: IBUPROFEN 400MG TABLET PO ONE (13:45)
[2022-09-09 13:56] LABS: BASOPHILS % 1.1 % (0.0-2.0); EOSINOPHILS % 1.8 % (0.0-5.0); HEMATOCRIT. 23.7 % (42.0-52.0); HEMOGLOBIN. 8.2 g/dL (14.0-18.0); LYMPHOCYTES % 9.9 % (20.0-50.0); MEAN CORPUSCULAR HEMOGLOBIN 30.3 pg (28.0-32.0); MEAN CORPUSCULAR VOLUME 87.2 fL (80.0-94.0); MEAN PLATELET VOLUME 7.1 fl (7.4-10.4); MONOCYTES % 4.2 % (2.0-8.0); PLATELET 241 x1000/uL (130-400); RED BLOOD CELL COUNT 2.72 mill/uL (4.7-6.1); RED CELL DISTRIBUTION WIDTH 13.9 % (11.6-14.6)
[2022-09-09] MEDS ORDERED: ASPIRIN 81MG TABLET PO ONE (14:00)
[2022-09-09 14:14] LABS: D-DIMER < 0.19 mg/L FEU (<0.50); PARTIAL THROMBOPLASTIN TIME 30.7 sec (23.4-31.0); PROTHROMBIN TIME 10.8 sec (9.6-11.0)
[2022-09-09 14:53] LABS: CHLORIDE 104 mEq/L (98-107)
[2022-09-09] MEDS ORDERED: SODIUM BICARBONATE 8.4% 1 MEQ/ML 50ML SYR IV ONE (15:45)
[2022-09-09] MEDS ORDERED: ALBUTEROL (0.083%) 2.5MG/3ML NEB HHN ONE (15:45)
[2022-09-09] MEDS ORDERED: SODIUM POLYSTYRENE SULFONATE 15 G/60 ML BOT PO ONE (15:45)
[2022-09-09] MEDS ORDERED: IPRATROPIUM/ALBUTEROL 0.5-3(2.5)MG/3ML NEB HHN PRN (17:00)
[2022-09-09] MEDS ORDERED: DIPHENHYDRAMINE 50MG/ML VIAL IV PRN (17:00)
[2022-09-09] MEDS ORDERED: ACETAMINOPHEN 325MG TABLET PO PRN (17:00)
[2022-09-09] MEDS ORDERED: ONDANSETRON HCL 4MG/2ML INJ IV PRN (17:00)
[2022-09-10] MEDS ORDERED: DEXTROSE 50% WATER 50ML SYRINGE IV PRN (00:45)
[2022-09-10 01:53] VITALS: BP 151/56
[2022-09-10 04:00] VITALS: BP 152/60
[2022-09-10 07:44] LABS: BASOPHILS % 0.7 % (0.0-2.0); EOSINOPHILS % 1.1 % (0.0-5.0); HEMATOCRIT. 21.3 % (42.0-52.0); HEMOGLOBIN. 7.5 g/dL (14.0-18.0); LYMPHOCYTES % 10.8 % (20.0-50.0); MEAN CORPUSCULAR HEMOGLOBIN 30.3 pg (28.0-32.0); MEAN CORPUSCULAR VOLUME 85.6 fL (80.0-94.0); MEAN PLATELET VOLUME 7.2 fl (7.4-10.4); MONOCYTES % 5.7 % (2.0-8.0); NEUTROPHILS % 81.7 % (40.0-76.0); PLATELET 224 x1000/uL (130-400); RED BLOOD CELL COUNT 2.49 mill/uL (4.7-6.1); RED CELL DISTRIBUTION WIDTH 13.6 % (11.6-14.6)
[2022-09-10 08:00] VITALS: BP 145/68
[2022-09-10] MEDS: BLOOD SUGAR DIAGNOSTIC STRIP TEST SCH ×4 (08:00→20:40)
[2022-09-10 08:30] LABS: CHLORIDE 105 mEq/L (98-107)
[2022-09-10] MEDS: INSULIN LISPRO 100 UNITS/ML SUBCUT SCH ×4 (09:26→20:59)
[2022-09-10 12:00] VITALS: BP 107/65
[2022-09-10] MEDS: HYDRALAZINE HCL 100MG TABLET PO SCH ×2 (13:41→21:05)
[2022-09-10 16:00] VITALS: BP 110/68
[2022-09-10] MEDS: BRIMONIDINE 0.2% OPHTH DROPS 5ML EACHEYE SCH (17:28)
[2022-09-10] MEDS: AMLODIPINE 5MG TABLET PO SCH (17:31)
[2022-09-10 20:00] VITALS: BP 143/62
[2022-09-10] MEDS ORDERED: LATANOPROST 0.005% OPHTH DROPS 2.5ML EACHEYE SCH (21:00)
[2022-09-11] VITALS: BP 163/72
[2022-09-11 04:00] VITALS: BP 158/63
[2022-09-11] MEDS: HYDRALAZINE HCL 100MG TABLET PO SCH ×2 (06:27→14:12)
[2022-09-11 08:00] VITALS: BP 141/58
[2022-09-11] MEDS: INSULIN LISPRO 100 UNITS/ML SUBCUT SCH ×2 (08:10→12:55)
[2022-09-11] MEDS: BLOOD SUGAR DIAGNOSTIC STRIP TEST SCH ×2 (08:34→12:50)
[2022-09-11] MEDS: AMLODIPINE 5MG TABLET PO SCH (09:08)
[2022-09-11] MEDS: BRIMONIDINE 0.2% OPHTH DROPS 5ML EACHEYE SCH ×2 (09:08→17:12)
[2022-09-11 12:00] VITALS: BP 135/61
[2022-09-11 16:00] VITALS: BP 155/63
[2022-09-11] MEDS ORDERED: EPOETIN ALFA-EPBX 4,000 UNIT/ML VIAL SUBCUT NR (17:04)
[2022-09-11 17:19] VITALS: BP 155/63
== END 2022-09-11 18:02 | disposition home or self-care (01) | DRG 682 ==
LOC: ER 12:38 → MICUSO 16:24 → EDBEDREQ 16:47 → EDBEDREQTM 16:47 → ENRESERV 21:09 → 7WST 09-10 00:28
PROVIDERS: ADMIT Internal Medicine; ATTEND Internal Medicine
DX: N17.9 Acute kidney failure, unspecified (principal); I21.4 Non-ST elevation (NSTEMI) myocardial infarction; E46 Unspecified protein-calorie malnutrition; I12.0 Hypertensive chronic kidney disease with stage 5 chronic kidney disease or end stage renal disease; E87.5 Hyperkalemia; N18.5 Chronic kidney disease, stage 5; E87.70 Fluid overload, unspecified; E11.22 Type 2 diabetes mellitus with diabetic chronic kidney disease; D63.1 Anemia in chronic kidney disease; K59.00 Constipation, unspecified; Z79.4 Long term (current) use of insulin
CPT/HCPCS: 36415; 71045; 72050; 80053; 82962; 83036; 83880; 84484; 85025; 85379; 93005; 93306; 93970; 94640; 99285; J0885; J1815; J3490

== ENCOUNTER 2022-11-21 21:10 | Emergency (ER) | payer MEDICARE, MEDICAID ==
[~2022-11-21 21:10] MED LIST changes: +ASPI-1497 MT; -FURO80TA3 PO; -LEVO250T74 PO
[2022-11-21 22:41] LABS: HEMATOCRIT 24.9 % (42.0-52.0); HEMOGLOBIN 8.6 g/dL (14.0-18.0); MEAN CORPUSCULAR VOLUME 86.7 fL (80.0-94.0); PLATELET 216 x1000/uL (130-400); RED BLOOD CELL COUNT 2.88 mill/uL (4.7-6.1); RED CELL DISTRIBUTION WIDTH 13.3 % (11.6-14.6)
[2022-11-21 22:52] LABS: CHLORIDE 108 mEq/L (98-107)
[2022-11-21] MEDS ORDERED: DEXTROSE 50% WATER 50ML SYRINGE IV NR (23:30)
[2022-11-21] MEDS ORDERED: CLONIDINE 0.2MG TABLET PO ONE (23:30)
[2022-11-21] MEDS ORDERED: SODIUM POLYSTYRENE SULFONATE 15 G/60 ML BOT PO ONE (23:30)
[2022-11-21] MEDS ORDERED: INSULIN REGULAR (HUMULIN R) 300UNITS/3ML VIAL IV NR (23:30)
[2022-11-22] MEDS ORDERED: CLONIDINE 0.3MG TABLET PO ONE (05:15)
[2022-11-22 05:30] VITALS: BP 209/91; PULSE 68; RESP 12; TEMP 98.1
[2022-11-22] MEDS ORDERED: SODI454P4 PO (06:21)
== END 2022-11-22 06:50 | disposition home or self-care (01) ==
LOC: ER 21:10
DX: E87.5 Hyperkalemia (principal); N18.6 End stage renal disease; I16.0 Hypertensive urgency; I12.0 Hypertensive chronic kidney disease with stage 5 chronic kidney disease or end stage renal disease; E11.22 Type 2 diabetes mellitus with diabetic chronic kidney disease
CPT/HCPCS: 99285; 80053; 85027; 84484; 36415 ×2; 93005 ×2; 96374; 96375; 80048; J1815